=== PATIENT | male | born 1975 | race Asian ===

== ENCOUNTER 2022-12-21 10:09 | Emergency (ER) | payer OTHER ==
[~2022-12-21] VITALS: Ht 172.7 cm; Wt 68.0 kg
[2022-12-21 10:09] VITALS: BP 100/70
--- NOTE | 2022-12-21 10:13 | NUR ---
BIB C/O FLU LIKE SYMPTOMS X9 DAYS, HAD CHILLS, HEADACHE, TOOK COVID TEST, FLU, AND RSV, ALL CAME BACK NEGATIVE. VITALS ARE WITHIN NORMAL LIMITS. AWAITING MD BALDERAS.
--- NOTE | 2022-12-21 10:21 | NUR ---
DR REN EVALUATING PT
[2022-12-21] MEDS ORDERED: IBUP-1955 PO (10:36)
--- NOTE | 2022-12-21 10:59 | NUR ---
Patient discharged to home in stable condition. Written and verbal after care instructions given. Patient verbalizes understanding of instruction.
== END 2022-12-21 11:00 | disposition home or self-care (01) ==
LOC: ER 10:16
DX: J06.9 Acute upper respiratory infection, unspecified (principal); R09.81 Nasal congestion